=== PATIENT | female | born 1965 | race Caucasian/White ===

== ENCOUNTER 2018-12-10 08:28 | Inpatient (IN) | payer BC ==
[~2018-12-10] VITALS: Ht 162.6 cm; Wt 118.8 kg
[2018-12-16] MEDS ORDERED: LEVOTHYROXINE75 MCG PO (11:46)
[2018-12-16] MEDS ORDERED: OXYCODONE HCL10 MG PO (11:47)
[2018-12-16] MEDS ORDERED: ADIPEX-P37.5 MG PO (11:48)
[2018-12-16] MEDS ORDERED: PRILOSEC OTC20 MG PO (11:48)
--- NOTE | 2018-12-16 12:09 | NUR ---
A JOINT PRE-OP SCREENING WAS DONE. THE PT DOES NOT HAVE A FWW WALKER YET, SHE IS GIVEN INFORMATION ON WHERE TO OBTAIN ONE AND IS ENCOURAGED TO BRING ONE WITH HER THE DAY OF SURGERY. SHE DOES HAVE 2 STEPS LEADING UP TO HER HOUSE, WITH NO RAIL. SHE DENIES ANY STEPS WITHIN THE HOUSE. SHE HAS A WALK-IN SHOWER AND A TUB/SHOWER COMBO. THE PT DOES NOT HAVE A SHOWER AND DIDN'T SEE THE NEED FOR ONE. SHE DOES HAVE A HAND-HELD SHOWER HEAD. SHE STATES THAT SHE HAS A TALL TOLIET AND THAT SHE DOESN'T NEED A TOLIET SEAT RISER. SHE HAS BEEN TO [facility] AND WOULD LIKE TO DO HER PHYSICAL THERPAY AT A NEW FACILITY IN [place] IF POSSIBLE. SHE DOES HAVE TRANSPORTATION READILY AVAILABLE TO HER. SHE LIVES WITH HER DAUGHTER AND HER FAMILY, WHO ARE ABLE TO GIVE HER RIDES AND HELP HER OUT AT HOME.
--- NOTE | 2018-12-30 06:18 | NUR ---
CHG ORAL RINSE AND NASAL SWAB COMPLETE.
[2018-12-30] MEDS ORDERED: ROBAXIN-750750 MG PO (07:57)
--- NOTE | 2018-12-30 09:44 | NUR ---
12/30/18 0944 Kassidy Roger 0919 PT ARRIVED IN PACU SLEEPY WITH NO C/O'S. 0925 XRAY OF R KNEE DONE BY BERLIN. 0930 ICE TO R KNEE. NO C/O'S.
--- NOTE | 2018-12-30 11:11 | NUR ---
CPAP MACHINE ON AT THIS TIME PER R.T. PATIENT STILL STATES PAIN IS AT A 10/10
--- NOTE | 2018-12-30 11:30 | NUR ---
PATIENT STILL HAVING PAIN 09/10, FATIMAH LIU CALLED AND OK'D RN TO START PAIN MEDICATION ORDERED BY THE PHYSICAN NOW. PATIENT GIVEN TORADOL AND TYLENOL SCHEDULED NOW AND CRACKERS WITH JESSICA.
--- NOTE | 2018-12-30 11:50 | NUR ---
SECOND SET OF POST OP VITALS DONE AT THIS TIME, PATIENT STILL STATES THAT PAIN IS AT A 10/10, AND FEELS LIKE THERE IS A WEIGHT ON HER LEG. CMS INTACT AND DRESSING TO KNEE IS INTACT WITH HORACIO WRAP. NEW ICE BAG PLACED ON THE SKIN AND PATIENT ADJUSTED IN BED.
--- NOTE | 2018-12-30 12:17 | NUR ---
FEMORAL BLOCK DONE AT THIS TIME BY HARNESSMAKER RAVI, PATIENT TOLERATED PROCEDURE WELL AND WAS PLACED ON A NC AT 4L DURING THE PROCEDURE. SATURATION WITH OXYGEN ON IS AT 95%
--- NOTE | 2018-12-30 12:51 | NUR ---
PATIENT MOVED TO ROOM 112 FROM 116 TO KEEP A CLOSER EYE ON HER, OXYGEN CURRENTLY 97% ON 4L PER NC, TURNED DOWN TO 3L AND PULSE OX REMAINS ON. PATIENT IS RESTING COMFTORABLY AND THIRD SET OF POST OP VITALS DONE. ICE APPLIED TO THE RIGHT LEG DRESSING WHICH REMAIN CDI AND CMS IS INTACT TO THE RIGHT LEG.
--- NOTE | 2018-12-30 13:51 | NUR ---
PT TO M/S FROM PACU-PT IS ASLEEP, FAMILY IN RM. CHECKED IN WITH FAMILY, WILL FOLLOW NEEDED
[2018-12-30] MEDS ORDERED: SYNTHROID100 MCG PO (14:32)
[2018-12-30] MEDS ORDERED: TRIAMCINOLONE A15 G1 TOP (14:47)
[2018-12-30] MEDS ORDERED: NAPROSYN500 MG PO (14:49)
--- NOTE | 2018-12-30 15:03 | NUR ---
MED REC COMPLETE WITH [facility] AND PATIENT INTERVIEW.
--- NOTE | 2018-12-30 15:05 | NUR ---
PATIENT STILL COMFTORABLE AT THIS TIME, SHE IS SITTING UP IN BED EATING LUNCH. FAMILY STILL IN THE ROOM HELPING THE PATIENT. PHARMACY IN THE ROOM TO DISCUSS HOME MEDICATIONS.
--- NOTE | 2018-12-30 16:05 | NUR ---
PATIENT HAVING TROUBLE WITH ALLERGIES AT THIS TIME, DOCTOR WATERMAN CALLED AND ORDER FOR CLARATIN GIVEN TO THIS RN AT THIS TIME. PATIENTS PAIN REMAINS TOLERABLE AT THIS TIME AND WATER FILLED UP FOR HER
--- NOTE | 2018-12-30 18:45 | NUR ---
PATIENT 2 PERSON TRANSFER TO THE [facility], RIGHT KNEE GAVE OUT DURING THE TRANSFER BUT PATIENT PIVOT TURNED WELL AND DENIES PAIN. PATIENT ABLE TO VOID AND WAS ASSISTED BACK TO BED. AND ICE PACKS BACK ON THE RIGHT KNEE. DRESSING REMAINS CDI WITH HORACIO BANDAGE AND CMS INTACT.
--- NOTE | 2018-12-30 18:55 | NUR ---
RECIEVED CHANGE OF SHIFT REPORT FROM JIMMY BUTLER. PATIENT RESTING AWAKE IN BED. WHITE BOARD UPDATED. NO MORE NEEDS AT THIS TIME.
--- NOTE | 2018-12-30 21:19 | NUR ---
ASSESSMENT COMPLETE. MEDICATIONS ADMINISTERED PER JAN ORDER. IV FLUIDS INFUSING PER JAN ORDER. DRESSING ON RIGHT KNEE IS CDI, NO SIGNS OF NEW DRAINAGE. 2 PA TO BEDSIDE COMMODE WITH FWW, PATIENT TOLERATED WELL. PATIENT REPORTS "4/10" "SHARP" PAIN THAT RADIATED FROM RIGHT HIP TO TOP OF RIGHT KNEE, PRN PAIN MEDICATION PROVIDED. PATIENT DENIES SOB, DIFFICULTY BREATHING, OR CHEST PAIN. CRACKER PROVIDED WITH PRN PAIN MEDICATION. FOOT PUMPS IN PLACE. ICE APPLIED TO RIGHT KNEE PER ORDER. PERSONAL CPAP AT BEDSIDE, PATIENT STATES SHE WILL PLACE THIS ON THEMSELVE WHEN THEY ARE READY TO SLEEP. CPOX ON, WNL. PATIENT REPORTS NUMBNESS AROUND RIGHT KNEE. CALL LIGHT WITHIN REACH. NO MORE NEEDS AT THIS TIME.
--- NOTE | 2018-12-30 23:50 | NUR ---
ROUNDED ON PATIENT FOR MEDICATION ADMINIRATION PER JAN ORDER. PATIENT REPORTS "3/10" PAIN IN RIGHT KNEE. ICE PACKS REMOVED FROM RIGHT KNEE. PATIENT PLACED CPAP ON HERSELF. CALL LIGHT WITHIN REACH. NO MORE NEEDS AT THIS TIME.
--- NOTE | 2018-12-31 00:49 | NUR ---
ROUNDED ON PATIENT TO PLACE ICE IN RIGHT KNEE. HEEL PROTECTORS IN PLACE. CPAP ON. CPOX WNL. CALL LIGHT WITHIN REACH. NO MORE NEEDS AT THIS TIME.
--- NOTE | 2018-12-31 02:25 | NUR ---
ASSESSMENT COMPLETE. PATIENT REPORTS "4/10", "SHARP" PAIN IN RIGHT KNEE, PRN PAIN MEDICATION PROVIDED. ICE APPLIED TO RIGHT KNEE. HEEL PROTECTORS AND VENOUS FOOT PUMPS IN PLACE. FINE CRACKLED NOTED IN LEFT LOWER LOBE, ENCOURAGED PATIENT TO COUCH AND DEEP BREATH, PATINET EXPRESSED UNDERSTANDING. PATIENT REPORTS CONGESTION, TISSUES AT BEDSIDE. 2 PA TO BEDSIDE COMMODE WITH FWW, PATIENT TOLERATED WELL. PATIENT DENIES HAVING SOB, DIFFICULTY BREATHING OR CHEST PAIN. PATIENT REPORTS SLIGHT NUMBNESS IN RIGHT LEG. CAP REFILL LESS THAN 2 SECONDS. DRESSING ON RIGHT KNEE IS CLEAN, DRY, AND INTACT. PATIENT EATING SNACK PACK AND SODA PROVIDED TO PATIENT PER PATIENT REQUEST. CPOX ON. IV FLUIDS INFUSING PER JAN ORDER. CALL LIGHT WITHIN REACH. NO MORE NEEDS AT THIS TIME.
--- NOTE | 2018-12-31 02:41 | NUR ---
ROUNDED ON PATIENT TO ANSWER CALL LIGHT. PATIENT SALINE LOCKED PER ORDER. CALL LIGHT WITHIN REACH. NO MORE NEEDS AT THIS TIME.
--- NOTE | 2018-12-31 05:58 | NUR ---
ALERT AND ORIENTED X3. HOME CPAP. DRESSING ON RIGHT KNEE IS CDI. ROOM AIR. CPOX. VENOUS FOOT PUMPS. HEEL PROTECTORS. ICE APPLIED PER ORDER. 2PA WITH FWW TO BEDSIDE COMMODE. PT. SALINE LOCKED. IS. PRN PAIN MEDICATION X2. SLEPT WELL THROUGHOUT NIGHT.
--- NOTE | 2018-12-31 06:20 | NUR ---
FOCUSED PAIN ASSESSMENT COMPLETE. PRN PAIN MEDICATION PROVIDED. SCHEDULED PAIN MEDICATION PROVIDER PER JAN ORDER. ICE PROVIDED. ADELE BUTLER AND MOHSEN AUGUSTINE ASSISTED PATIENT TO BEDSIDE COMMODE. CALL LIGHT WITHIN REACH. NO MORE NEEDS AT THIS TIME.
--- NOTE | 2018-12-31 07:00 | NUR ---
Pt sitting up in bed using cell phone. Pt oriented x3. Pt obeys commands and able to answer questions appropriately.
--- NOTE | 2018-12-31 09:20 | NUR ---
IV RFA FLUSHED WITH 2 ML NS, RESISTENCE FELT WITH IV FLUSH AND UNABLE TO VISUALIZE BLOOD RETURN. PT STATED THERE WAS PAIN WHILE ATTEMPTING FLUSH. IV SITE ASSESSED. MINIMAL SWELLING NOTED. WINDOW DRESSING CLEAN, DRY, INTACT. IV INFILTRATED, RN DC IV. TIP INTACT.
--- NOTE | 2018-12-31 09:43 | NUR ---
PATIENT 2 PERSON ASSIST WITH FWW UP TO THE CHAIR WITH 2 PERSON ASSIST. PATIENT IS STARTING TO HAVE STREGTH ON THE RIGHT LEG AFTER YESTERDAY'S FEMORAL BLOCK. PAIN CURRENTLY IS TOLERABLE.
--- NOTE | 2018-12-31 10:24 | OR ---
[facility] [address], [place] [address] Signed DATE OF OPERATION: 12/30/2018 SURGEON: Kate Castellanos MD PREOPERATIVE DIAGNOSIS: End-stage osteoarthritis, right knee. POSTOPERATIVE DIAGNOSIS: End-stage osteoarthritis, right knee. PROCEDURE: Right total knee arthroplasty. ANESTHESIA: General. SPECIMENS AND COMPLICATIONS: There were no specimens or complications. TOURNIQUET TIME: About 85 minutes. WHAT WAS DONE: The patient was taken to the operating room. After anesthesia was induced and the airway secured, the right lower extremity was positioned, prepped and draped in a routine sterile fashion. The leg was exsanguinated with an Esmarch bandage. Pneumatic tourniquet was inflated to 300 mmHg pressure. A straight anterior approach was made to the knee and a medial flap created. An anteromedial arthrotomy was performed. The patella was turned on edge and about 9 mm of the posterior aspect of the patella were removed. We then made drill holes for 35 mm all-poly patellar button. We then measured the reconstituted height and was 23 mm exactly where we began. We then slid the patella into the lateral recess and flexed the knee. The [employer] navigation system was attached to the patient and following the prompts the distal femur was digitized. We then made the distal femoral resection and had about 10 mm in neutral varus valgus and about 3 degrees of flexion to avoid anterior notching. We then performed the distal femoral resection without difficulty and removed the femoral wafers. We then transitioned the navigation system to the proximal tibia. Again, we followed the prompts and digitized the proximal tibia. The tibia was then resected at 4 mm off the medial side. A 9 mm off the lateral side in neutral varus valgus and 3 degrees of posterior tilt per the Attune surgical protocol. We then removed the tibial wafer along with remnants of the Electronically Signed By: KATE CASTELLANOS MD 12/31/18 1024 PATIENT NAME: CARROL VICENTE OPERATIVE REPORT DATE OF : 67 REPORT #: [id number] PHYSICIAN: KATE CASTELLANOS MD PCP: NO PRIMARY CARE PHYSICIAN REPORT IS CONFIDENTIAL AND NOT TO BE RELEASED WITHOUT AUTHORIZATION [facility] [address], [place] [address] Signed medial lateral meniscus, ACL and PCL. We then sized the distal femur to a size 7. The size 7, four-in-one cutting block was placed on the distal femur and anterior posterior and chamfer cuts were made. We then placed the notch cutting block on the distal femur and cut out the notch for the box. We then placed the lamina sporting goods salesperson laterally removed the remaining meniscal tissue medially. We then placed the lamina sporting goods salesperson medially and removed the remaining meniscal tissue laterally. We appeared to have fairly equal balance medially and laterally. We then placed the femoral trial on the distal femur and drilled the holes for the lugs. We then placed the size 6 tibial tray on the tibia with a 5 mm poly. We then reduced the knee and had a full extension. There was just a little bit of log roll in the varus and valgus, in flexion and extension and the mid range. We marked the rotational alignment of the tibial tray. The tibia was then prepared using the standard broach and reamer. The knee was copiously irrigated and meticulously dried. We then cemented the final components in place. We put the 6 mm poly on the tibial tray and held the knee in full extension while the cement cured. We then removed the trial poly and removed marginal cementophytes. At this point, the knee was again copiously irrigated. We were actually able to see the 7 mm poly and had excellent flexion, extension of balance and did not sacrifice any of our extension. We therefore snap-fit the real 7 poly onto the tibial base plate and reduced the knee. The knee was copiously irrigated and closed in a standard fashion. Sterile dressings were applied. The patient was awakened and taken to the recovery room where she arrived in stable condition. Counts were correct and antibiotic protocols were followed. Kate Castellanos MD WFB/MODL /[id number] Copies: ~ Electronically Signed By: KATE CASTELLANOS MD 12/31/18 1024 PATIENT NAME: CARROL VICENTE OPERATIVE REPORT DATE OF : 67 REPORT #: [id number] PHYSICIAN: KATE CASTELLANOS MD PCP: NO PRIMARY CARE PHYSICIAN REPORT IS CONFIDENTIAL AND NOT TO BE RELEASED WITHOUT AUTHORIZATION
--- NOTE | 2018-12-31 10:45 | NUR ---
PT TO BATHROOM, 2 PERSON ASSIST AND USE OF FWW. PT TOLERATES AMBULATION WITHOUT SYMPTOMS OF DIZZINESS, HOWEVER PT IS UNABLE TO BEND RIGHT KNEE, GAIT IS STEADY BUT UNEVEN. PT VOIDS WITHOUT DIFFICULTY, CLEAR YELLOW URINE, NO ODOR NOTED. PT ABLE TO DO PERSONAL CARE IN VOIDING. PT AMBULATES BACK TO CHAIR AFTER VOIDING. C/O RIGHT KNEE PAIN 5/10, PRN KETOROLAC GIVEN FOR C/O RIGHT KNEE PAIN. PT DENIES FURTHER NEEDS AT THIS TIME. CALL LIGHT IN REACH.
--- NOTE | 2018-12-31 11:05 | NUR ---
patient has a new iv started in the right a/c #22 guage. student nurse attempted one in the right hand with no success.
--- NOTE | 2018-12-31 11:31 | NUR ---
PATIENT UP AMBULATING IN THE HALLWAY, DOCTOR CASTELLANOS IN TO SEE THE PATIENT.
--- NOTE | 2018-12-31 13:19 | NUR ---
PT IS ALERT, ORIENTED AND DRESSED. SHE IS SITTING ON THE SIDE OF BED COLORING TO PASS THE TIME. PT COMMENTED THAT CHOOSING TO HAVE HER SURGERY AT [facility] AND TO HAVE DR CASTELLANOS, WAS ONE OF THE BEST DECISIONS SHE HAS MADE. PT IS WORKING HARD TO IMPROVE HER HEALTH TO BE HERE FOR HER G.KIDS. SHE HAS LOST 145LBS IN THE LAST YEAR, AND HOPES THIS NEW KNEE WILL INCREASE HER MOBILITY AND ENJOYMENT OF LIFE MORE. LOTS OF CHALLENGES GETTING TO THIS POINT IN HER LIFE. EXTENDED A BLESSING, SHE IS WAITING TO BE DC'D
--- NOTE | 2018-12-31 13:30 | NUR ---
SN AND INTRUCTOR ENTERED PT ROOM AND THE PT WAS WALKING OUT OF THE BATHROOM WITH NO ASSIST. PT ASKED IF THEY CAN BE WALKING WITHOUT ASSISTENCE, PT STATED "NO, I JUST REALLY NEEDED TO GO TO THE BATHROOM." PT TEACHING WAS ESTABLISHED BY THE INSTRUCTOR. PT VERBALLY STATED UNDERSTANDING OF NEED TO USE CALL LIGHT. PT IV ASSESSED, DRESSING SATURATED WITH BLOOD. FLUSH ATTEMPTED AND UNSUCCESSFUL. DRESSING REMOVED, IV CATHETER KINKED AT INSERTION SITE, IV REPOSITIONED, ANOTHER FLUSH ATTEMPTED AND SUCCESSFUL. CHEVERON DRESSING WITH GAUZE DRESSING TO IV SITE. IV REMAINS PATENT. PT TRANSFERRED TO BED ASSISTED BY SN. ICE PACKS X3 REFILLED WITH ICE AND PLACED ON R KNEE. SCD PLACED ON PT'S FEET. TYLENOL 650 MG PO GIVEN FOR R KNEE PAIN 06/10. PT ABLE TO TAKE MEDICATION INDEPENDANTLY WITHOUT DIFFICULTY. PT STATES NO FURTHER NEEDS AT THIS TIME. CALL LIGHT IN REACH.
--- NOTE | 2018-12-31 13:47 | NUR ---
REPORT RECIEVED FROM CARRIE MARQUEZ.
--- NOTE | 2018-12-31 14:15 | NUR ---
PATIENT ASSESSMENT DONE.
--- NOTE | 2018-12-31 17:39 | NUR ---
PATIENT DID WELL TODAY WITH PHYSICAL THERAPY, PAIN AVERAGED 7/10, NO NAUSEA. PATIENT REPORTED 9/10 PAIN BEFORE SURGERY. DRESSING CDI, PATIENT IS VOIDING WELL.
--- NOTE | 2018-12-31 18:39 | NUR ---
PATIENT IS SLEEPING WITH BI-PAP ON.
--- NOTE | 2018-12-31 19:14 | NUR ---
SHIFT REPORT RECEIVED. PATIENT APPEARS TO BE SLEEPING. RR 18. CALL LIGHT IN REACH.
--- NOTE | 2018-12-31 20:00 | NUR ---
PATIENT UP TO THE BATHROOM WITH COLOR CARD MAKER MARCH. REQUEST PRN PAIN MEDS. 2 TABS OXY GIVEN FOR PAIN 8/10 IN RIGHT KNEE. IV SITE WAS PARTIALLY PULLED OUT, PATIENT THINKS DURING HER TRANSFER TO THE BATHROOM. SITE REMOVED. NEW IV PLACED WITH 1 ATTEMPTS IN RIGHT HAND. PATIENT DENIES FURTHER NEEDS AT THIS TIME. CALL LIGHT IN REACH.
--- NOTE | 2018-12-31 22:15 | NUR ---
PATIENT APPEARED TO BE SLEEPING WHEN RN ENTERED ROOM. WOKE EASILY TO VOICE. PATIENT REPORTS BURNING LIKE PAIN IN HER KNEE THAT HAS BEEN ONGOING POST OP. FRESH ICE PACKS APPLIED. LUNGS ARE CLEAR, ENCOURAGED TO USE IS. ABD IS SOFT, NO NAUSEA. CMS INTACT IN RAVIN LOWER EXTREMITIES. HORACIO WRAP TO RIGHT KNEE, NO DRAINAGE NOTED. FOOT PUMPS IN USE. PATIENT'S HOME CPAP IN PLACE. DENIES FURTHER NEEDS.
--- NOTE | 2018-12-31 23:56 | NUR ---
HELPED PT TO THE BATHROOM WITH HER FWW. PT WILL PULL STRING/CALL LIGHT IN BATHROOM WHEN SHE IS DONE. THREE FRESH ICE PACKS MADE AND GIVEN TO PT.
--- NOTE | 2019-01-01 | NUR ---
PATIENT UP TO THE BATHROOM. HAD A LARGE BM, REPORTS STOMACH DISCOMFORT AND RIGHT KNEE PAIN 07/11. SCHEDULED AND PRN PAIN MEDS PROVIDED. PRN ZOFRAN. PATIENT BACK IN BED. POSITIONED FOR COMFORT WITH ICE PACKS ON RIGHT KNEE. HORACIO WRAP HAD BECOME VERY LOOSE. REAPPLIED TO THE SAME WAY IT WAS. THE GAUZE PADDING UNDER THE HORACIO WRAP HAD NO NEW DRAINAGE AND MEPILEX IS IN PLACE. CMS INTACT IN RAVIN LOWER EXTREMITIES. FOOT PUMPS IN USE. PATIENT PROVIDED WITH SODA PER REQUEST. CALL LIGHT IN REACH.
--- NOTE | 2019-01-01 02:30 | NUR ---
patient appears to be sleeping, rr 18. cpap in place.
--- NOTE | 2019-01-01 05:48 | NUR ---
PATIENT SLEPT MOST OF THE SHIFT USING HOME CPAP. PAIN CONTROLLED WITH SCHEDULED AND PRN OXY. ICE PACKS IN USE PER ORDER. DRESSING ON RIGHT KNEE CDI. NEW IV START LAST NIGHT IN RIGHT HAND. PATIENT HAD SOME NAUSEA AROUND MIDNIGHT AFTER SHE HAD A LARGE BM. RESOLVED WITH PRN ZOFRAN. URINE OUTPUT QS. SBA W/FWW.
--- NOTE | 2019-01-01 06:03 | NUR ---
HELPED PT TO THE BATHROOM WITH HER FWW. FRESH ICE WATER GIVEN. PT WILL CALL WHEN SHE IS DONE.
--- NOTE | 2019-01-01 07:05 | NUR ---
PT RESTING SUPINE IN BED, APPEARS TO BE IN NO ACUTE DISTRESS, DENIES NEEDS. CALL LIGHT AND H20 IN REACH. BEDSIDE REPORT RECEIVED FROM CARRIE MACDONALD. JAMES BENÍTEZ UPDATED.
--- NOTE | 2019-01-01 09:10 | NUR ---
Pt resting supine in bed, appears to be in no acute distress. Assessment completed. Dr richards in to remove dressing to right knee. Per dr richards site is WNL and pt may shower. Call light and h20 in reach. No needs or concerns voiced.
--- NOTE | 2019-01-01 12:26 | NUR ---
PT RESTING USING C-PAP. WILL CHECK BACK LATER
--- NOTE | 2019-01-01 12:33 | NUR ---
pt assisted up to restroom with sba and fww. Pt tolerates ambulation well. Pt back to bed. call light and h20 in reach. Pt denies further needs.
--- NOTE | 2019-01-01 14:16 | NUR ---
PT UP TO CHAIR. PT REPORTS 5/10 RIGHT KNEE PAIN AT REST AND 8/10 PAIN WITH MOVEMENT. PRN PO OXYCODONE ADMINISTERED PER PT REQUEST. PT ALSO PROVIDED WITH FRESH ICE AND WARM BLANKET PER REQUEST. PT ATE 100% OF LUNCH. CALL LIGHT AND H2O IN REACH.PT DENIES FURTHER NEEDS. INSURANCE MANAGER IN ASSITING WITH PT CARES AND CHANGING LINEN.
--- NOTE | 2019-01-01 15:42 | NUR ---
PT RESTING IN BED, REPORTS PERSISTING PAIN OF 6/10 TO RIGHT KNEE. DSG CDI, ICE IS APPLIED TO RIGHT KNEE. LIGHTS DIMMED FOR COMFORT. PRN PO DILAUDID 4MG PO ADMINISTERED PER PT REQUEST. PT STATES "I THINK I'M GOING TO TRY TO TAKE A NAP" PT APPLIES HOME CPAP AT THIS TIME. CALL LIGHT AND H20 IN REACH. PT GIVEN NEW BOX OF TISSUES PER HER REQUEST AND STATES SHE HAS BEEN SNEEZING QUITE A BIT. NO FURTHER NEEDS OR CONCERNS VOICED. FRESH ICE WATER PROVIDED.
--- NOTE | 2019-01-01 16:18 | NUR ---
Pt. was sleeping; easily aroused by verbal stimuli; Pt.'s pain was managable at the time, no intervention was needed; call light, water, and cell phone were left by the bedside.
--- NOTE | 2019-01-01 17:25 | NUR ---
PT RESTING SUPINE IN BED, EYES CLOSED AND RESPIRATIONS EVEN AND UNLABORED WITH CPAP IN PLACE. CALL LIGHT AND H20 IN REACH. pt appears to be sleeping comfortably.
--- NOTE | 2019-01-01 18:46 | NUR ---
Student nurse shift summary: Pt. had a good morning with pain ranging from 3-5 on the pain scale; no nausea and walked around the floor once. Pt had 3 bowel movements throughout the day and all digestive aids were held. The pt. expereinced more pain throughout the day and oxycodone was given after ambulating independently to the bathroom, ranking her pain at a 9. The Pt.'s pain stayed around a 4-6 this afternoon, and she got nauseated on two different occasions and received zofran.
--- NOTE | 2019-01-01 19:22 | NUR ---
SHIFT REPORT RECEIVED FROM DAYSHIFT CARRIE LABOY AND STUDENT NURSE. PT AWAKE RR EVEN AND UNLABORED. PT ON RA, DENIES SOB. PT REPORTS NEED TO VOID, SBA TO BATHROOM WHILE CARRIE LABOY COMPLETES REPORT. INCISION TO RIGHT KNEE OPEN TO AIR, STERI STRIP LIKE MATERIAL, DRY SANGUINEOUS DRAINAGE AT INCISION SITE NOTE WITH EDEMA AND REDDNESS. RIGHT KNEE WARMER TO THE TOUCH COMPARED TO LEFT KNEE. DR HENRY AWARE PER CARRIE LABOY. WILL CONTINUE TO MONITOR. PT REPORTS NAUSEA, CARRIE LABOY TO PREPARE IV PHENERGEN. CALL LIGHT IN REACH. NO FURTHER NEEDS.
--- NOTE | 2019-01-01 19:33 | NUR ---
pt reports nausea, no emisis. phenergan 12.5mg administered slow ivp. Call light and h20 in reach. No further needs or concerns voiced.
--- NOTE | 2019-01-01 20:29 | NUR ---
ASSESSMENT COMPLETE. PT DROSWY FROM RECENT PHENERGEN ADMINISTRATION, BUT IS AROUSABLE AND A/OX4. RIGHT KNEE OPEN TO AIR WITH STERI STRIP LIKE MATERIAL TO INCISION SITE, DRY SANGUINEOUS DRAINAGE NOTED AT SITE. EDEMA NOTED WITH RIGHT KNEE. RIGHT KNEE WARMER COMPARED TO LEFT KNEE WITH REDDNESS. FRESH ICE PACK APPLIED. STRONG PEDAL PULSES NOTED BILATERALLY. WILL MONITOR. VSS. IV SITE WNL, FLUSHING WELL. PT REFUSES SCD'S AND HEEL PROTECTORS AT THIS TIME. CALL LIGHT IN REACH.
--- NOTE | 2019-01-01 20:33 | NUR ---
PATIENT'S SCHEDULED MILK OF MAG HELD PT HAD MULTIPLE BM'S ON DAYSHIFT.
--- NOTE | 2019-01-01 22:56 | NUR ---
HELPED PT TO THE BATHROOM AND BACK TO BED WITH HER FWW. BEDSIDE TABLE AND CALL LIGHT IN REACH. PT NEEDS NOTHING MORE AT THIS TIME.
--- NOTE | 2019-01-01 23:51 | NUR ---
HELPED PT TO THE BATHROOM AND BACK TO BED WITH HER FWW. PER PT REQUEST I GOT HER A SPRITE WITH ICE. BEDSIDE TABLE AND CALL LIGHT IN REACH. PT NEEDS NOTHING MORE AT THIS TIME.
--- NOTE | 2019-01-02 00:15 | NUR ---
SCHEDULED TORADOL AND TYLENOL ADMINISTERED. WHEN ENTERING ROOM, THIS RN FOUND CPAP MACHINE OFF OF PT'S FACE. PT REPORTS PAIN IS 5/10. FRESH ICE PACK TO RIGHT KNEE. NO FURTHER NEEDS. CPAP MACHINE IN PLACE AFTER REMINDING PT OF MACHINE.
--- NOTE | 2019-01-02 02:30 | NUR ---
PT RESTING IN BED, EYES CLOSED, RR EVEN AND UNLABORED. CPAP MACHINE IN PLACE. NO DISTRESS NOTED. CALL LIGHT IN REACH.
--- NOTE | 2019-01-02 03:41 | NUR ---
ASSISTED PT FROM RESTROOM BACK TO BED SBA WITH FWW. PT'S KNEE IS WARM TO TOUCH, EDEMATUS, AND PAINFUL. EDGES ARE WELL APPROXIMATED WITH NO DRAINAGE NOTED. DICUSSED WITH PT'S PRIMARY RN, SHE WILL UPDATE DR CASTELLANOS IN AM.
--- NOTE | 2019-01-02 03:49 | NUR ---
ASSESSMENT COMPLETE. PT A/OX4. PRN PAIN MEDICATION GIVEN FOR 8/10 PAIN IN RIGHT KNEE. RIGHT KNEE WARMER TO THE TOUCH COMPARED TO LEFT KNEE. REDDNESS AND EDEMA ALSO NOTED. INCISION EDGES WELL APPROXIMATED, OPEN TO AIR, NO DRAINAGE NOTED. SMALL CLOSED BLISTER NOTED ON RIGHT KNEE, WILL CONTINUE TO MONITOR. PT REPORTS NAUSEA IN MID ASSESSMENT, PRN ZOFRAN ALSO ADMINISTERED. IV SITE WNL. CALL LIGHT IN REACH. FRESH ICE TO KNEE.
--- NOTE | 2019-01-02 04:09 | NUR ---
UP TO BR, VOIDED AND HAD A BM, BACK TO BED, TOLERATD FAIR, SOB WITH EXERTION NOTED. REQUIRES ONE PERSON ASSIST AND FWW
--- NOTE | 2019-01-02 05:36 | NUR ---
PT HAD AN OKAY NIGHT. PAIN CONTROLLED WITH PRN AND SCHEDULED PAIN MEDICATIONS. PT A/OX4. PT ON REGULAR DIET, TOLERATING WELL. INTERMITTENT NAUSEA, PHENERGEN X1 AT BEGINNING OF SHIFT WELL ZOFRAN X1 IN CUSTOMER FIELD REPRESENTATIVE. PT HAD MULTIPLE BM'S. PT SALINE LOCKED, SITE WNL. KNEE WARM TO THE TOUCH, EDEMA AND REDDNESS ALSO NOTED. WELL APPROXIMATED, OPEN TO AIR, NO DRAINAGE. PT ABS W/ FWW, USES CALL LIGHT APPROPERIATELY.
--- NOTE | 2019-01-02 06:22 | NUR ---
VSS. I&O'S RECORDED. ROOM TIDIED. SCHEDULED THYROID, TORADOL, AND TYLENOL ADMINISTERED. CALL LIGHT IN REACH.
--- NOTE | 2019-01-02 06:43 | NUR ---
DR CASTELLANOS CALLED REGARDING PT'S RIGHT KNEE APPEARANCE. MD AWARE OF EDEMA, REDDNESS, INCREASED WARMTH COMPARED TO LEFT SIDE, AND SMALL CLOSED BLISTER TO RIGHT KNEE. NO NEW ORDERS.
--- NOTE | 2019-01-02 07:39 | NUR ---
received report from appeals and generalist clerk rn. pt in bed, wakes to verbal stimuli and falls back asleep quickly. pt reports pain 5/10 in right knee. pt refusing heel protectors and scds. ice to right knee. respirations equal and nonlabored.
--- NOTE | 2019-01-02 10:00 | NUR ---
PT WORKING WITH PHYSICAL THERAPY. TOLERATING WELL.
--- NOTE | 2019-01-02 10:56 | NUR ---
PT AMBULATING IN [place], USING WALKER AND LAVON WITH PT. PT APPEARS IN PAIN, QUIET VOICE-APPEARS TO BE SOMEWHAT DIFFICULT TO TALK. GAVE ENCOURAGEMENT, WILL CONTINUE TO FOLLOW. PT MAY BE DC'D LATER TODAY
--- NOTE | 2019-01-02 11:09 | NUR ---
GOT PATIENT UP WALKED HER INTO THE BATHROOM. THAN SHE SET UP IN HER CHAIR TO EAT BREAKFAST. GOT HER FRESH CUP OF ICE WATER. CHANGED HER BED LINENS.
--- NOTE | 2019-01-02 11:14 | NUR ---
PATIENT IS SITTING UP IN HER CHAIR. SHE SAID SHE WOULD LIKE TO TAKE A SHOWER AFTER LUNCH. SHE IS ALL SET UP.
--- NOTE | 2019-01-02 11:17 | NUR ---
ROUNDED WITH DR CASTELLANOS. PLAN OF CARE DISCUSSED. QUESTIONS AND CONCERNS ADDRESSED. PT UP IN CHAIR. CALL LIGHT IN REACH. SCHEDULED TYLENOL AND TORIDOL ADMINISTERED PAIN 6/10 IN RIGHT KNEE. PT REPORTS 7/10 ABDOMINAL PAIN, REPORTS THIS PAIN IS FROM DIARRHEA DN GOES AWAY AFTER A BM. DENIES FURTHER NEEDS.
[2019-01-02] MEDS ORDERED: XARELTO10 MG PO (12:12)
[2019-01-02] MEDS ORDERED: TYLENOL325 M1 PO (12:13)
[2019-01-02] MEDS ORDERED: OXYCODONE HCL10 MG PO (12:13)
[2019-01-02] MEDS ORDERED: DILAUDID4 MG PO (12:14)
--- NOTE | 2019-01-02 13:11 | NUR ---
PT UP ORKING WITH PHYSICAL THERAPY.
--- NOTE | 2019-01-02 13:28 | NUR ---
FAXED ORDER/CLINICALS FOR OUTPATIENT PHYSICAL THERAPY TO [facility] [phone]. FAX CONFIRMATION RECEIVED 01/02/19 113PM. CALLED AND SPOKE WITH STAFF THERE [phone] WHO WILL CONTACT PATIENT NEXT WEEK.
--- NOTE | 2019-01-05 09:30 | DS ---
[facility] [address] [place] [address] Signed ADMISSION DATE: 12/30/2018 DISCHARGE DATE: 01/02/2019 FINAL DIAGNOSIS: At the time of discharge, end-stage osteoarthritis right knee. PROCEDURE: Right total knee arthroplasty. SURGEON: Moris Fish MD HISTORY OF PRESENT ILLNESS: The patient has had progressively severe osteoarthritis in her right knee for quite a period of time. She no longer gets any relief from conservative measurements and presented for elective total knee arthroplasty. HOSPITAL COURSE: The patient was taken to the operating room on the day of admission via Day Surgery where she underwent an uneventful Attune posterior stabilized total knee arthroplasty. Postoperatively, she has done well. She has progressed with physical therapy and has met her performance criteria. She is being discharged taking Dilaudid and oxycodone alternating as needed for pain. We will continue her on Xarelto for DVT prophylaxis and arrange for her to get outpatient physical therapy. Moris Fish MD WFB/MODL /[id number] Copies: ~ Electronically Signed By: MORIS FISH MD 01/05/19 0930 PATIENT NAME: VICENTECARROL Richard DISCHARGE SUMMARY DATE OF : 67 REPORT #: [id number] PHYSICIAN: MORIS FISH MD PCP: BRENDEN HERNDON NP REPORT IS CONFIDENTIAL AND NOT TO BE RELEASED WITHOUT AUTHORIZATION
== END 2019-01-02 15:22 | disposition home or self-care (01) | DRG 470 ==
LOC: MS 12-30 05:45 → DSVR 12-30 05:45 → MS 12-30 06:45
PROVIDERS: ADMIT Orthopaedic Surgery
PROC: 8E0YXBZ Computer Assisted Procedure of Lower Extremity (ICD-10-PCS; 2018-12-30)
PROC: 3E0T3BZ Introduction of Anesthetic Agent into Peripheral Nerves and Plexi, Percutaneous Approach (ICD-10-PCS; 2018-12-30)
PROC: 5A09357 Assistance with Respiratory Ventilation, Less than 24 Consecutive Hours, Continuous Positive Airway Pressure (ICD-10-PCS; 2018-12-30)
PROC: 0SRC0J9 Replacement of Right Knee Joint with Synthetic Substitute, Cemented, Open Approach (ICD-10-PCS; principal; 2018-12-30 06:45)
DX: M17.11 Unilateral primary osteoarthritis, right knee (principal); Z68.41 Body mass index [BMI] 40.0-44.9, adult; G89.18 Other acute postprocedural pain; E66.01 Morbid (severe) obesity due to excess calories; E03.9 Hypothyroidism, unspecified; G47.33 Obstructive sleep apnea (adult) (pediatric); F17.200 Nicotine dependence, unspecified, uncomplicated; D72.829 Elevated white blood cell count, unspecified; Z79.899 Other long term (current) drug therapy
CPT/HCPCS: 01320; 36415; 73560; 80048; 85025; 94762; 97110; 97116; 97161; 97530; 99406; C1713; C1776; J0330; J1100; J1170; J1885; J2250; J2274; J2405; J2550; J2704; J2795; J3010; J3370; J7120